=== PATIENT | male | born 1965 | race Caucasian/White ===

== ENCOUNTER → 2017-08-27 | Outpatient (REF) | payer MEDICAID ==
[2017-09-02 08:06] LABS: BENZODIAZEPINES, URINE SCREEN Negative ng/mL (Cutoff=200); METHADONE, URINE SCREEN Negative ng/mL (Cutoff=300); OPIATES, URINE Positive ng/mL (Cutoff=300); pH, URINE 5.6 (4.5-8.9)
== END ==
LOC: M LABDRAW1 11:52
PROVIDERS: ATTEND Physician Assistant
DX: M25.511 Pain in right shoulder (principal)

== ENCOUNTER → 2018-04-02 | Day surgery (SDC) | payer OTHER ==
[~2018-04-02] MED LIST: EPINEPHrine INJ 1 MG/ML 1ML AMP; GLYCOPYRROLATE INJ 0.2 MG/ML 2 ML VIAL As Ordered; KETOROLAC 60 MG/2 ML VIAL (J1885) As Ordered; LIDOCAINE 1% MDV 20ML VIAL SQ; LIDOCAINE 2% INJ 100 MG/5 ML SDV (FOR ANES.) As Ordered; LR 1,000 ML IV; METOCLOPRAMIDE INJ 10MG/2ML VIAL (J2765) As Ordered; METOCLOPRAMIDE INJ 10MG/2ML VIAL (J2765) IV; MIDAZOLAM INJ 2 MG/2 ML VIAL (J2250) As Ordered; MORPHINE 10 MG/ML 1ML VIAL (J2270) As Ordered; MORPHINE 4 MG/ML 1ML VIAL/SYRINGE (J2270) IV; NEOSTIGMINE 10 MG/10 ML VIAL (J2710) As Ordered; NORCO, ANEXSIA 5/325MG TABLET (HYDROcodone/ACETAMINOPHEN) PO; ONDANSETRON 4MG/2ML VIAL (J2405) As Ordered; ONDANSETRON 4MG/2ML VIAL (J2405) IV; PHENYLephrine HCL 500 MCG/5 ML (100MCG/ML) SYRINGE (J2370) As Ordered; PROPOFOL 200 MG/20 ML VIAL As Ordered; ROCURONIUM BROMIDE 50 MG/5 ML VIAL As Ordered; ROPIvacaine 0.5% 30 ML INJECTION (J2795 PER 1MG); SUGAMMADEX SODIUM 500 MG/5 ML VIAL (BRIDION) As Ordered; dexameTHASONE 4 MG/ML 1ML VIAL (J1100) As Ordered; ePHEDrine SULFATE 25 MG/5 ML(5MG/ML) SYRINGE As Ordered; fentaNYL 100 MCG/2 ML INJECTION (J3010) As Ordered; fentaNYL 100 MCG/2 ML INJECTION (J3010) IV; fentaNYL 250 MCG/5 ML INJECTION (J3010) As Ordered
[2018-04-02] MEDS: MIDAZOLAM INJ 2 MG/2 ML VIAL (J2250) IV ×4 (11:39→11:41)
[2018-04-02] MEDS: fentaNYL 100 MCG/2 ML INJECTION (J3010) IV ×4 (11:39→11:42)
[2018-04-02] MEDS: EPINEPHrine 1MG/10ML SYRINGE 1.5IN As Ordered ×2 (11:41)
[2018-04-02] MEDS: ceFAZolin SOD 1 GM in D5W MINI-BAG PLUS 50 ML IV (12:19)
[2018-04-02] MEDS: EPINEPHrine INJ 1 MG/ML 1ML AMP As Ordered ×2 (13:26)
[2018-04-02] MEDS: PERCOCET 5MG/325MG TAB PO ×4 (14:40→15:14)
[2018-04-02] MEDS: LR 500 ML IV ×2 (17:30)
[2018-04-02] MEDS: MORPHINE 10 MG/ML 1ML VIAL (J2270) IV ×10 (17:45→18:20)
== END | disposition home or self-care (01) ==
LOC: M SDC 09:01
DX: S43.432A Superior glenoid labrum lesion of left shoulder, initial encounter (principal); M19.012 Primary osteoarthritis, left shoulder; M75.22 Bicipital tendinitis, left shoulder; I10 Essential (primary) hypertension; E78.5 Hyperlipidemia, unspecified; K21.9 Gastro-esophageal reflux disease without esophagitis; M19.92 Post-traumatic osteoarthritis, unspecified site; R29.898 Other symptoms and signs involving the musculoskeletal system; F41.9 Anxiety disorder, unspecified; F32.9 Major depressive disorder, single episode, unspecified; E55.9 Vitamin D deficiency, unspecified; E66.01 Morbid (severe) obesity due to excess calories; Z68.42 Body mass index [BMI] 45.0-49.9, adult; Z88.5 Allergy status to narcotic agent; Z79.899 Other long term (current) drug therapy; Z86.718 Personal history of other venous thrombosis and embolism; W19.XXXA Unspecified fall, initial encounter; Y92.89 Other specified places as the place of occurrence of the external cause; Y93.89 Activity, other specified; Y99.0 Civilian activity done for income or pay
CPT/HCPCS: 29824

== ENCOUNTER 2020-08-15 15:15 | Emergency (ER) | payer OTHER, MEDICAID ==
[~2020-08-15] VITALS: Ht 167.6 cm; Wt 127.3 kg
[~2020-08-15 15:15] MED LIST changes: +ATOR40TA75 PO; +BENA1TAB24 PO; +CETI10TA PO; -EPINEPHrine INJ 1 MG/ML 1ML AMP; +FLUO20CA22; -GLYCOPYRROLATE INJ 0.2 MG/ML 2 ML VIAL As Ordered; +HYDR-3713; +HYDR-3713 PO; -KETOROLAC 60 MG/2 ML VIAL (J1885) As Ordered; -LIDOCAINE 1% MDV 20ML VIAL SQ; -LIDOCAINE 2% INJ 100 MG/5 ML SDV (FOR ANES.) As Ordered; -LR 1,000 ML IV; -METOCLOPRAMIDE INJ 10MG/2ML VIAL (J2765) As Ordered; -METOCLOPRAMIDE INJ 10MG/2ML VIAL (J2765) IV; -MIDAZOLAM INJ 2 MG/2 ML VIAL (J2250) As Ordered; -MORPHINE 10 MG/ML 1ML VIAL (J2270) As Ordered; -MORPHINE 4 MG/ML 1ML VIAL/SYRINGE (J2270) IV; -NEOSTIGMINE 10 MG/10 ML VIAL (J2710) As Ordered; -NORCO, ANEXSIA 5/325MG TABLET (HYDROcodone/ACETAMINOPHEN) PO; +OMEP1CAP73 PO; -ONDANSETRON 4MG/2ML VIAL (J2405) As Ordered; -ONDANSETRON 4MG/2ML VIAL (J2405) IV; -PHENYLephrine HCL 500 MCG/5 ML (100MCG/ML) SYRINGE (J2370) As Ordered; -PROPOFOL 200 MG/20 ML VIAL As Ordered; -ROCURONIUM BROMIDE 50 MG/5 ML VIAL As Ordered; -ROPIvacaine 0.5% 30 ML INJECTION (J2795 PER 1MG); -SUGAMMADEX SODIUM 500 MG/5 ML VIAL (BRIDION) As Ordered; +VITA-112 PO; -dexameTHASONE 4 MG/ML 1ML VIAL (J1100) As Ordered; -ePHEDrine SULFATE 25 MG/5 ML(5MG/ML) SYRINGE As Ordered; -fentaNYL 100 MCG/2 ML INJECTION (J3010) As Ordered; -fentaNYL 100 MCG/2 ML INJECTION (J3010) IV; -fentaNYL 250 MCG/5 ML INJECTION (J3010) As Ordered
[2020-08-15] MEDS ORDERED: MECLIZINE 25 MG TABLET PO ONE (16:00)
[2020-08-15] MEDS ORDERED: PROMETHAZINE INJ 25 MG/ML VIAL (J2550) IV ONE (16:00)
[2020-08-15] MEDS ORDERED: NS 500 ML IV ONE (16:00)
--- NOTE | 2020-08-15 16:16 | REP ---
INDICATION: diaphoresis COMPARISON: None. TECHNIQUE: Portable AP view of the chest FINDINGS: The mediastinum and cardiac silhouette are stable and within normal limits for portable technique. Subtle right basilar atelectasis cannot be excluded. No discrete focal consolidation, effusion, or pneumothorax. Skeletal structures are intact. IMPRESSION: Cannot exclude subtle right basilar atelectasis. No focal consolidation or effusion. <Electronically signed by Eriberto Pastor > 08/15/20 [id number]
[2020-08-15 16:25] LABS: BASO # 0.1 10^3/uL (0.0-0.2); BASO % 0.5 % (0.0-1.0); EOS # 0.1 10^3/uL (0.0-0.5); EOS % 0.5 % (0.0-3.0); HEMATOCRIT 42.1 % (42.0-52.0); HEMOGLOBIN 14.4 g/dl (13.5-17.5); LYMPH # 1.3 10^3/uL (1.5-5.0); LYMPH % 13.1 % (24.0-44.0); MEAN CORPUSCULAR HEMOGLOBIN 28.4 pg (27.0-33.0); MEAN CORPUSCULAR HGB CONC 34.2 g/dl (32.0-36.5); MONO # 0.5 10^3/uL (0.0-0.8); MONO % 5.3 % (0.0-5.0); NEUTROPHILS # 8.2 10^3/uL (1.5-8.5); NEUTROPHILS % 79.8 % (36.0-66.0); PLATELET COUNT, AUTOMATED 282 10^3/uL (150-450); RED BLOOD COUNT 5.07 10^6/uL (4.30-6.10); WHITE BLOOD COUNT 10.2 10^3/uL (4.0-10.0)
[2020-08-15 16:50] LABS: ALBUMIN 4.3 GM/DL (3.2-5.2); ALT/SGPT 43 U/L (12-78); BILIRUBIN,TOTAL 0.5 MG/DL (0.2-1.0); BLOOD UREA NITROGEN 19 MG/DL (7-18); C REACTIVE PROTEIN QUANTITATIV 0.33 MG/DL (0.00-0.30); CALCIUM LEVEL 10.2 MG/DL (8.5-10.1); CARBON DIOXIDE LEVEL 22 MEQ/L (21-32); CHLORIDE LEVEL 101 MEQ/L (98-107); CK-MB VALUE MASS 2.1 NG/ML (<3.6); CPK CREATINE PHOSPHOKINASE 166 U/L (39-308); CREATININE FOR GFR 1.01 MG/DL (0.70-1.30); GLOMERULAR FILTRATION RATE > 60.0 (>56); GLUCOSE, FASTING 235 MG/DL (70-100); MB/CK RELATIVE INDEX 1.27 (< OR =4); NT-PRO BNP 37 PG/ML (<125); POTASSIUM SERUM 4.1 MEQ/L (3.5-5.1); SODIUM LEVEL 136 MEQ/L (136-145); TOTAL PROTEIN 7.5 GM/DL (6.4-8.2); TROPONIN I < 0.02 NG/ML (< 0.10)
[2020-08-15 16:51] LABS: ERYTHROCYTE SEDIMENTATION RATE 7 mm/hr (0-20)
[2020-08-15] MEDS ORDERED: MECL1TAB31 PO (19:18)
[2020-08-15] MEDS ORDERED: Physical Therapy (19:19)
[2020-08-15 19:41] VITALS: BP 139/85
--- NOTE | 2020-08-16 08:05 | REP ---
INDICATION: vertigo COMPARISON: None. TECHNIQUE: Axial noncontrast images from the skull base to the vertex with coronal reformations. This CT examination was performed using the following dose reduction techniques: Automated exposure control, adjustment of mA and/or kv according to the patient's size, and use of iterative reconstruction technique. FINDINGS: The ventricles, sulci, and cisterns are normal in position and appearance. Tiwari-white differentiation is maintained. No acute intracranial hemorrhage, mass/mass effect, pathology or trauma/injury. No evidence for acute infarction. No extra-axial fluid collection. Calvarium is intact. Paranasal sinuses and mastoid air cells are clear. IMPRESSION: Normal noncontrast head CT. No evidence for acute intracranial pathology or trauma/injury. <Electronically signed by Eriberto Pastor > 08/16/20 [id number]
--- NOTE | 2020-08-16 14:22 | ECGEPIP ---
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
== END 2020-08-15 19:46 | disposition home or self-care (01) ==
LOC: EDBD 15:15 → M ED 15:15
DX: H81.10 Benign paroxysmal vertigo, unspecified ear (principal); I10 Essential (primary) hypertension; E78.5 Hyperlipidemia, unspecified; Z79.891 Long term (current) use of opiate analgesic; Z79.899 Other long term (current) drug therapy; Z88.6 Allergy status to analgesic agent

== ENCOUNTER → 2022-08-17 | Outpatient (CLI) | payer MEDICAID, OTHER ==
[~2022-08-17] MED LIST changes: +BENA-8 PO; -FLUO20CA22; +FLUO20CA22 PO; +GABA-1171 PO; +GLIM1TAB4 PO; +MECL1TAB31 PO; +METF850T4 PO; +METO1TAB32 PO; +Physical Therapy
== END ==
LOC: M LABSMTC 10:37
PROVIDERS: ATTEND Anesthesiology
DX: Z01.812 Encounter for preprocedural laboratory examination (principal); Z11.52 Encounter for screening for COVID-19

== ENCOUNTER 2022-08-20 07:11 | Day surgery (SDC) | payer OTHER ==
[~2022-08-20] VITALS: Ht 167.6 cm; Wt 126.2 kg
[~2022-08-20 07:11] MED LIST changes: +NS 1,000 ML IV ONE
[2022-08-20] MEDS ORDERED: LIDOCAINE 2% 100MG/5ML SDV (FOR ANES.) As Ordered ONE (08:25)
[2022-08-20] MEDS ORDERED: propofoL 200 MG/20 ML VIAL As Ordered ONE ×2 (08:25→08:27)
[2022-08-20 09:00] VITALS: BP 192/105
== END 2022-08-20 09:05 | disposition home or self-care (01) ==
LOC: M OPP 07:11
PROVIDERS: ATTEND Surgery
DX: Z86.010 Personal history of colon polyps (principal); Z80.0 Family history of malignant neoplasm of digestive organs; K63.5 Polyp of colon; I10 Essential (primary) hypertension; E78.5 Hyperlipidemia, unspecified; E11.9 Type 2 diabetes mellitus without complications; K21.9 Gastro-esophageal reflux disease without esophagitis; M19.90 Unspecified osteoarthritis, unspecified site; F41.9 Anxiety disorder, unspecified; F32.A Depression, unspecified; G47.30 Sleep apnea, unspecified; Z86.718 Personal history of other venous thrombosis and embolism; Z88.5 Allergy status to narcotic agent; Z79.84 Long term (current) use of oral hypoglycemic drugs; Z79.899 Other long term (current) drug therapy

== ENCOUNTER → 2024-08-05 | Outpatient (REF) | payer OTHER ==
[~2024-08-05] MED LIST changes: +FLUO-365 PO; -FLUO20CA22 PO; -GLIM1TAB4 PO; +GLIM1TAB84 PO; +MECL-209 PO; -MECL1TAB31 PO; -NS 1,000 ML IV ONE
[2024-08-05 17:53] LABS: ALBUMIN 3.8 G/DL (3.2-5.2); ALKALINE PHOSPHATASE 79 U/L (40-129); ALT/SGPT 28 U/L (7.0-40); AST/SGOT 15 U/L (<34); BILIRUBIN,TOTAL 0.7 MG/DL (0.3-1.2); BLOOD UREA NITROGEN 13 MG/DL (9-23); CALCIUM LEVEL 10.2 MG/DL (8.5-10.1); CARBON DIOXIDE LEVEL 28 MMOL/L (20-31); CHLORIDE LEVEL 107 MMOL/L (98-107); CHOLESTEROL LEVEL 128 MG/DL (<200); CHOLESTEROL RISK RATIO 3.74 (<5); CREATININE FOR GFR 0.74 MG/DL (0.70-1.30); GLOMERULAR FILTRATION RATE > 60.0 (>56); GLUCOSE, FASTING 85 MG/DL (60-100); HDL CHOLESTEROL 34.2 MG/DL (>40); LDL CHOLESTEROL 61.8 MG/DL (<100); NON-HDL-C 93.8 MG/DL; POTASSIUM SERUM 5.1 MMOL/L (3.5-5.1); SODIUM LEVEL 141 MMOL/L (136-145); THYROID STIMULATING HORMONE 1.012 uIU/ML (0.55-4.78); TOTAL PROTEIN 6.9 G/DL (5.7-8.2); TRIGLYCERIDES LEVEL 160 MG/DL (<150)
[2024-08-05 18:04] LABS: HEMOGLOBIN A1c 6.5 % (4.0-6.0)
== END ==
LOC: M LAB REF 16:26
PROVIDERS: ATTEND Family Medicine Addiction Medicine
DX: E11.9 Type 2 diabetes mellitus without complications (principal)

== ENCOUNTER → 2025-04-07 | Outpatient (REF) | payer OTHER | LOC: M LAB REF 16:51 | PROVIDERS: ATTEND Orthopaedic Surgery | DX: Z01.818 Encounter for other preprocedural examination (principal); M25.561 Pain in right knee ==

== ENCOUNTER → 2025-05-03 | Outpatient (CLI) | payer OTHER ==
[2025-05-03 13:01] LABS: BASO # 0.1 10^3/uL (0.0-0.2); BASO % 0.4 % (0.0-1.0); EOS # 0.3 10^3/uL (0.0-0.5); EOS % 2.0 % (0.0-3.0); LYMPH # 2.4 10^3/uL (1.5-5.0); LYMPH % 16.5 % (24.0-44.0); MONO # 0.9 10^3/uL (0.0-0.8); MONO % 6.2 % (2.0-8.0); NEUTROPHILS # 10.9 10^3/uL (1.5-8.5); NEUTROPHILS % 74.6 % (36.0-66.0); PLATELET COUNT, AUTOMATED 391 10^3/uL (150-450)
[2025-05-03 13:13] LABS: INR 0.94
[2025-05-03 13:25] LABS: ALT/SGPT 33 U/L (7.0-40); AST/SGOT 22 U/L (<34); CALCIUM LEVEL 9.6 MG/DL (8.3-10.6); CARBON DIOXIDE LEVEL 26 MMOL/L (20-31); CHLORIDE LEVEL 104 MMOL/L (98-107); CREATININE FOR GFR 0.75 MG/DL (0.70-1.30); GLOMERULAR FILTRATION RATE > 90.0 (>49); POTASSIUM SERUM 4.7 MMOL/L (3.5-5.1); SODIUM LEVEL 141 MMOL/L (136-145)
[2025-05-03 13:32] LABS: ESTIMATED AVERAGE GLUCOSE 131.0 MG/DL (60-110)
== END ==
LOC: M PLALAB 12:01
PROVIDERS: ATTEND Orthopaedic Surgery
DX: M17.11 Unilateral primary osteoarthritis, right knee (principal); Z79.01 Long term (current) use of anticoagulants

== ENCOUNTER → 2025-05-23 | Outpatient (REF) | payer OTHER ==
[2025-05-23 13:24] LABS: APPEARANCE, URINE HAZY (CLEAR); BACTERIA, URINE AUTO NEGATIVE (NEGATIVE); BILIRUBIN, URINE AUTO NEGATIVE (NEGATIVE); BLOOD, URINE BLOOD NEGATIVE (NEGATIVE); GLUCOSE, URINE (UA) AUTO NEGATIVE (NEGATIVE); KETONE, URINE AUTO NEGATIVE (NEGATIVE); LEUKOCYTE ESTERASE, URINE AUTO NEGATIVE (NEGATIVE); MUCUS, URINE SMALL (NEGATIVE); NITRITE, URINE AUTO NEGATIVE (NEGATIVE); PROTEIN, URINE AUTO NEGATIVE (NEGATIVE); RBC, URINE AUTO 0 /HPF (0-3); SPECIFIC GRAVITY URINE AUTO 1.017 (1.002-1.035); SQUAMOUS EPITHELIAL CELL UR AU 0 /HPF (0-6); TRANSITIONAL EPITHELIAL AUTO <1 /HPF; UROBILINOGEN, URINE AUTO 0.2 mg/dL (0.0-2.0); WBC, URINE AUTO 1 /HPF (0-3)
== END ==
LOC: M SMT 12:50
PROVIDERS: ATTEND Nurse Practitioner Family
DX: R35.0 Frequency of micturition (principal)

== ENCOUNTER → 2025-07-10 | Outpatient (CLI) | payer OTHER ==
[~2025-07-10] MED LIST changes: +GABA-1172 PO; +SEMA2PEN SC
== END ==
LOC: M RAD 14:16
PROVIDERS: ATTEND Orthopaedic Surgery
DX: M17.11 Unilateral primary osteoarthritis, right knee (principal)

== ENCOUNTER 2025-07-24 08:45 | Observation (INO) | payer OTHER ==
[2025-07-24] VITALS (10 sets, daily range): BP systolic 120–142; BP diastolic 79–97; TEMP 98.1–98.8; O2SAT 95–98
[~2025-07-24] VITALS: Ht 167.6 cm; Wt 109.8 kg
[~2025-07-24 08:45] MED LIST changes: +LIDOCAINE 2% 100 MG/5 ML SDV (FOR ANES.) As Ordered ONE; +ONDANSETRON 4MG/2ML VIAL As Ordered ONE; +dexAMETHasone 4 MG/ML 1 ML VIAL As Ordered ONE
[2025-07-24] MEDS ORDERED: MIDAZOLAM INJ 2 MG/2 ML VIAL As Ordered ONE (09:07)
[2025-07-24] MEDS ORDERED: ROCURONIUM BROMIDE 50MG/5ML VIAL As Ordered ONE (09:42)
[2025-07-24] MEDS: LR 1,000 ML IV SCH ×2 (10:09→17:18)
[2025-07-24] MEDS: MIDAZOLAM INJ 2 MG/2 ML VIAL IV PRN (11:10)
[2025-07-24] MEDS: EPINEPHrine INJ 1 MG/ML 1ML AMP PN ONE (11:23)
[2025-07-24] MEDS: ROPIvacaine 0.5% 30ML VIAL PN ONE (11:23)
[2025-07-24] MEDS: LIDOCAINE 1% SDV 5 ML VIAL PN ONE (11:23)
[2025-07-24] MEDS: VANCOMYCIN 1000MG/20ML VIAL As Ordered ONE (11:50)
[2025-07-24] MEDS: TRANEXAMIC ACID 100 MG/ML 10ML VIAL As Ordered ONE (12:15)
[2025-07-24] MEDS ORDERED: ACETAMINOPHEN 1000MG/100ML IV BAG As Ordered ONE (12:38)
[2025-07-24] MEDS ORDERED: HYDROmorphone HCL 2 MG/ML 1 ML VIAL As Ordered ONE (12:48)
[2025-07-24] MEDS ORDERED: SUGAMMADEX SODIUM 500 MG/5 ML VIAL As Ordered ONE (12:51)
[2025-07-24] MEDS: REK 50ML SYRINGE IA ONE (14:20)
[2025-07-24] MEDS ORDERED: LR 1,000 ML IV SCH (14:30)
[2025-07-24] MEDS ORDERED: MEPERIDINE 25 MG/ML 1 ML VIAL IV PRN (14:30)
[2025-07-24] MEDS ORDERED: SENNA 8.6 MG TAB PO PRN (14:40)
[2025-07-24] MEDS ORDERED: ONDANSETRON 4MG/2ML VIAL IV PRN (14:40)
[2025-07-24] MEDS: HYDROMORPHONE HCL 0.5 MG/0.5 ML SYRINGE IV PRN (15:35)
[2025-07-24] MEDS: ONDANSETRON 4MG/2ML VIAL IV PRN (16:03)
[2025-07-24] MEDS: TRANEXAMIC ACID INJection 1,000 MG, VIAL MATE ADAPTER 1 EACH in NS 100 ML IV ONE (17:00)
[2025-07-24] MEDS: ceFAZolin SOD 2 GM IV ONCE IV ONE (17:00)
[2025-07-24] MEDS: ACETAMINOPHEN 325 MG TAB PO SCH (17:19)
[2025-07-24] MEDS ORDERED: TAMS1CAP17 PO (17:27)
[2025-07-24] MEDS ORDERED: HOME MED LIST COMPLETE! XX SCH (17:30)
[2025-07-24] MEDS: ceFAZolin SODIUM 2 GM in DEXTROSE 5% (D5W) ADV/MINI-BAG 50 ML IV SCH (20:50)
[2025-07-24] MEDS: DOCUSATE SODIUM 100 MG CAPSULE PO SCH (20:51)
[2025-07-24] MEDS: ASPIRIN 81 MG ENTERIC TABLET PO SCH (20:52)
[2025-07-25 02:00] VITALS: BP 126/88; TEMP 97.9; O2SAT 97
[2025-07-25 06:00] VITALS: BP 142/92; TEMP 97.9; O2SAT 96
[2025-07-25 06:30] LABS: PLATELET COUNT, AUTOMATED 267 10^3/uL (150-450)
[2025-07-25 06:52] LABS: ALT/SGPT 89 U/L (7.0-40); AST/SGOT 42 U/L (<34); CALCIUM LEVEL 9.9 MG/DL (8.3-10.6); CARBON DIOXIDE LEVEL 24 MMOL/L (20-31); CHLORIDE LEVEL 103 MMOL/L (98-107); CREATININE FOR GFR 0.77 MG/DL (0.70-1.30); GLOMERULAR FILTRATION RATE > 90.0 (>49); POTASSIUM SERUM 4.3 MMOL/L (3.5-5.1); SODIUM LEVEL 141 MMOL/L (136-145)
[2025-07-25] MEDS: CEFDINIR 300 MG CAP PO SCH (08:53)
[2025-07-25] MEDS: ASCORBIC ACID 500 MG TAB PO SCH (08:53)
[2025-07-25] MEDS: FERROUS SULFATE 325 MG TAB PO SCH (08:53)
[2025-07-25] MEDS ORDERED: GLIMEPIRIDE 1 MG TABLET PO SCH (09:00)
[2025-07-25] MEDS ORDERED: BENAZEPRIL 5 MG TAB PO SCH (09:00)
[2025-07-25] MEDS ORDERED: COLA100C5 PO (09:44)
[2025-07-25] MEDS ORDERED: PERC5TAB12 PO (09:44)
[2025-07-25] MEDS ORDERED: ASPI81TAEC PO (09:44)
[2025-07-25] MEDS ORDERED: CELE100C PO (09:44)
[2025-07-25] MEDS ORDERED: SENN18TA PO (09:44)
[2025-07-25] MEDS ORDERED: OMEP1CAP73 PO (09:44)
[2025-07-25] MEDS ORDERED: CEFD300CAP PO (09:44)
[2025-07-25] MEDS ORDERED: TRAN650T PO (09:44)
[2025-07-25] MEDS ORDERED: ACET32TAB PO (09:44)
[2025-07-25] MEDS ORDERED: DEXTROSE 50% 50 ML SYRINGE IV PRN (09:55)
[2025-07-25] MEDS ORDERED: GLUCOSE 4 GM CHEW PO PRN (09:55)
[2025-07-25] MEDS ORDERED: GLUCAGON INJ 1 MG VIAL SC PRN (09:55)
[2025-07-25] MEDS: CETIRIZINE 10 MG TAB PO SCH (10:27)
[2025-07-25] MEDS ORDERED: INSULIN LISPRO (NovoLOG) PER UNIT SC SCH ×2 (12:00→21:00)
[2025-07-25] MEDS ORDERED: METOPROLOL SUCC. 25 MG *XL* TAB PO SCH (21:00)
== END 2025-07-25 11:39 | disposition home or self-care (01) ==
LOC: M SDC 08:45 → M RR INP 08:46 → M MS5PR 16:10
PROVIDERS: ADMIT Orthopaedic Surgery; ATTEND Orthopaedic Surgery
DX: M17.11 Unilateral primary osteoarthritis, right knee (principal); I10 Essential (primary) hypertension; E78.5 Hyperlipidemia, unspecified; E11.9 Type 2 diabetes mellitus without complications; K21.9 Gastro-esophageal reflux disease without esophagitis; F41.9 Anxiety disorder, unspecified; F32.A Depression, unspecified; G47.00 Insomnia, unspecified; Z79.84 Long term (current) use of oral hypoglycemic drugs; Z79.899 Other long term (current) drug therapy; Z88.5 Allergy status to narcotic agent
CPT/HCPCS: 27447; 36415; 73560; 80053; 85027; 88300; 96361; 96374; 96376; 97116; 97161; 97165; 97530; 97535; C1776; G0378; J0131; J0165; J0166; J0688; J1100; J1171; J1885; J2250; J2405; J2795; J3010; S2900

== ENCOUNTER → 2025-08-04 | Outpatient (CLI) | payer OTHER ==
[~2025-08-04] MED LIST changes: +ACET32TAB PO; +ASPI81TAEC PO; +CEFD300CAP PO; +CELE100C PO; +COLA100C5 PO; -LIDOCAINE 2% 100 MG/5 ML SDV (FOR ANES.) As Ordered ONE; -ONDANSETRON 4MG/2ML VIAL As Ordered ONE; +PERC5TAB12 PO; +SENN18TA PO; +TAMS1CAP17 PO; +TRAN650T PO; -dexAMETHasone 4 MG/ML 1 ML VIAL As Ordered ONE
== END ==
LOC: M SOG 07:44
PROVIDERS: ATTEND Orthopaedic Surgery
DX: Z47.1 Aftercare following joint replacement surgery (principal)

== ENCOUNTER → 2025-09-26 | Outpatient (CLI) | payer OTHER | LOC: M RAD 15:58 | PROVIDERS: ATTEND Nurse Practitioner Family | DX: R93.89 Abnormal findings on diagnostic imaging of other specified body structures (principal) ==